=== PATIENT | female | born 1970 | race Two or more races ===

== ENCOUNTER 2023-02-18 20:16 | Emergency (ER) | payer OTHER ==
[~2023-02-18] VITALS: Ht 157.5 cm; Wt 76.2 kg
[2023-02-18 20:59] VITALS: BP 140/66; TEMP 98.1; O2SAT 100
[2023-02-18] MEDS ORDERED: ACETAMINOPHEN ES 500 MG TABLET ONE (22:16)
[2023-02-18] MEDS ORDERED: ACETAMINOPHEN ES 500 MG TABLET PO ONE (22:30)
== END 2023-02-18 22:36 | disposition home or self-care (01) ==
LOC: ER 20:20
DX: R04.0 Epistaxis (principal); R51.9 Headache, unspecified; I10 Essential (primary) hypertension; E11.9 Type 2 diabetes mellitus without complications